=== PATIENT | female | born 1990 | race Caucasian/White ===

== ENCOUNTER 2024-03-17 13:12 | Emergency (ER) | payer SELFPAY ==
[~2024-03-17] VITALS: Ht 144.8 cm; Wt 54.5 kg
[2024-03-17] MEDS ORDERED: NAPROSYN500 MG PO (17:08)
[2024-03-17] MEDS ORDERED: AMOX TR-K CLV1 EAC1 PO (17:08)
[2024-03-17] MEDS ORDERED: AMOXICILLIN/CLAVULANATE K 875 MG TAB PO ONE (17:15)
[2024-03-17] MEDS ORDERED: NAPROXEN 500 MG TAB PO ONE (17:15)
[2024-03-17 17:34] VITALS: BP 134/99
== END 2024-03-17 17:34 | disposition home or self-care (01) ==
LOC: ED 13:12
DX: K04.7 Periapical abscess without sinus (principal); K02.9 Dental caries, unspecified
CPT/HCPCS: 99282